=== PATIENT | female | born 1960 | race Caucasian/White ===

== ENCOUNTER 2017-12-22 10:27 | Emergency (ER) | payer OTHER ==
--- NOTE | 2017-12-22 13:30 | ED Physician Documentation ---
PD HPI BACK INJURY - Stated complaint Stated Complaint: BACK PAIN - History obtained from History obtained from: Patient - History of Present Illness Location: Left, Lower Type of injury: Twist. No: Fall, Blunt / blow, Laceration Where injury occurred: Home Timing - onset: How many days ago (3) Timing - details: Abrupt onset, Still present Quality: Pain, Sharp, Aching Improved by: No: Rest Worsened by: Moving, Palpating Associated symptoms: No: Fever, Weakness, Numbness, Incontinent of urine Contributing factors: No: Anticoagulated, Prior back surgery Similar symptoms before: Has not had sx before Recently seen: Not recently seen Review of Systems Constitutional: denies: Fever, Chills Nose: denies: Rhinorrhea / runny nose, Congestion Throat: denies: Sore throat Cardiac: denies: Chest pain / pressure, Palpitations Respiratory: denies: Dyspnea (but upper lumbar area hurts with ceep breathing and movement.), Cough GI: denies: Abdominal Pain, Nausea, Vomiting, Diarrhea : denies: Dysuria, Frequency Skin: denies: Rash, Lesions Neurologic: denies: Generalized weakness, Focal weakness, Numbness PD PAST MEDICAL HISTORY - Past Medical History Cardiovascular: Hypertension, High cholesterol Respiratory: None Endocrine/Autoimmune: Type 2 diabetes GI: GERD : None Psych: None Musculoskeletal: None Derm: None - Past Surgical History Past Surgical History: Yes - Present Medications Home Medications: Ambulatory Orders Medication Instructions Recorded Confirmed Lisinopril [Zestril] 10 mg PO DAILY 05/16/13 09/09/15 Losartan Potassium [Cozaar] 50 mg PO 05/16/13 09/09/15 Metformin HCl 1,000 mg PO BID 05/16/13 09/09/15 Amoxicillin/Potassium Clav [Amox 1 tab PO BID 09/09/15 09/09/15 Tr-K Clv 875-125 mg Tab] Benzonatate [Tessalon [place]] 1 cap PO TID 09/09/15 09/09/15 Loratadine 10 mg PO DAILY 09/09/15 09/09/15 HYDROcod/ACETAM 5/325 [[place] 5/325] 1 tab PO Q6H PRN #15 tablet 12/22/17 Methocarbamol [Robaxin] 500 mg PO Q6H PRN #25 tablet 12/22/17 Naproxen 375 mg PO BID #20 tablet 12/22/17 - Allergies Allergies/Adverse Reactions: Allergies Allergy/AdvReac Type Severity Reaction Status Date / Time tramadol AdvReac Severe Hives Verified 12/22/17 10:33 - Social History Does the pt smoke?: No Smoking Status: Never smoker Does the pt drink ETOH?: No Does the pt have substance abuse?: No - Immunizations Immunizations are current?: Yes - POLST Patient has POLST: No PD ED PE NORMAL - Vitals Vital signs reviewed: Yes - General General: Alert and oriented X 3, Well developed/nourished, Other (appears uncomfortable and has guarded ROM of the lumbar back area) - Neck Neck: Supple, no meningeal sign, No adenopathy - Cardiac Cardiac: RRR, No murmur - Respiratory Respiratory: No respiratory distress, Clear bilaterally - Abdomen Abdomen: Soft, Non tender, Non distended - Female Female : Deferred - Rectal Rectal: Deferred - Back Back: No CVA TTP, No spinal TTP, Other (tender left muscles TL area. ) - Derm Derm: Normal color, Warm and dry, No rash - Neuro Neuro: Alert and oriented X 3, No motor deficit, No sensory deficit, Normal speech Results - Vitals Vitals: Oxygen O2 Source Room air - Labs Labs: Laboratory Tests 12/22/17 12/22/17 12/22/17 14:00 14:39 14:39 WBC 6.9 RBC 4.23 Hgb 14.2 Hct 40.9 MCV 96.7 MCH 33.6 H MCHC 34.7 RDW 12.2 Plt Count 208 MPV 7.9 Neut # 4.0 Lymph # 2.4 [place] # 0.4 Eos # 0.1 Baso # 0.0 Absolute Nucleated RBC 0.00 Nucleated RBC % 0.0 Sodium 137 Potassium 4.2 Chloride 97 L Carbon Dioxide 29 Anion Gap 11.0 BUN 9 Creatinine 0.7 Estimated GFR (MDRD) 86 L Glucose 177 H Calcium 9.3 Total Bilirubin 0.6 AST 17 ALT 19 Alkaline Phosphatase 63 Total Protein 7.0 Albumin 3.9 Globulin 3.1 Albumin/Globulin Ratio 1.3 Lipase 40 Urine Color YELLOW Urine Clarity CLEAR Urine pH 6.0 Ur Specific [place] 1.010 Urine Protein NEGATIVE Urine Glucose (UA) NEGATIVE Urine Ketones NEGATIVE Urine Occult Blood NEGATIVE Urine Nitrite NEGATIVE Urine Bilirubin NEGATIVE Urine Urobilinogen 0.2 (NORMAL) Ur Leukocyte Esterase NEGATIVE Ur Microscopic Review NOT INDICATED Urine Culture Comments NOT INDICATED - Rads (name of study) abd CT Radiology: Prelim report reviewed, EMP read contemporaneously (no stones, spinous abnormal, dilated aorta nor lower lung abnormalities. ) PD MEDICAL DECISION MAKING - ED course Complexity details: considered differential (back pain positional without neuro symptoms and no red flags on history/exam. Hurts with breathing but is thoracolumbar msucles and not upper thoracic. ), d/w patient Departure - Departure Disposition: Home, Self Care Clinical Impression: Back strain Qualifiers: Encounter type: initial encounter Qualified Code(s): S39.012A - Strain of muscle, fascia and tendon of lower back, initial encounter Condition: Stable Record reviewed to determine appropriate education?: Yes Instructions: ED Sprain Strain Lumbar Follow-Up: Navjot Hess MD [Primary Care Provider] - Prescriptions: HYDROcod/ACETAM 5/325 [[place] 5/325] 1 tab PO Q6H PRN #15 tablet PRN Reason: Pain Methocarbamol [Robaxin] 500 mg PO Q6H PRN #25 tablet PRN Reason: Spasms Naproxen 375 mg PO BID #20 tablet Comments: Drink lots of fluids. Naproxen twice daily for 7-10 days. Robaxin for muscle spasms. Add Tylenol and/or Hydrocodone as needed for pains. Heat and gentle stretching. No signs of worse causes on labs/CT scan. Presume muscular strain/ spasm as cause of the pain. Discharge Date/Time: 12/22/17 15:58
[2017-12-22] MEDS ORDERED: IBUPROFEN 600 MG TABLET PO STA (14:03)
[2017-12-22] MEDS ORDERED: HYDROcod/ACETAM 5/325 MG TABLET PO STA (14:03)
[2017-12-22 14:21] LABS: BILIRUBIN,URINE NEGATIVE (NEGATIVE); GLUCOSE, URINE (UA) NEGATIVE (NEGATIVE); KETONES,URINE (UA) NEGATIVE (NEGATIVE); LEUKOCYTE ESTERASE, URINE NEGATIVE (NEGATIVE); NITRITE,URINE NEGATIVE (NEGATIVE); OCCULT BLOOD,URINE NEGATIVE (NEGATIVE); PROTEIN,URINE NEGATIVE (NEGATIVE); UROBILINOGEN,URINE 0.2 (NORMAL) E.U./dL (NORMAL)
[2017-12-22 14:22] LABS: CLARITY,URINE CLEAR (CLEAR)
--- NOTE | 2017-12-22 14:42 | CT Report ---
EXAM: CT ABDOMEN AND PELVIS (CT KUB) EXAM DATE: 12/22/2017 02:22 PM. CLINICAL HISTORY: Left flank pain for couple days. COMPARISONS: 09/09/2015. TECHNIQUE: Routine axial helical CT imaging was performed through the abdomen and pelvis without IV c ontrast. Reconstructions: Coronal and sagittal. In accordance with CT protocol optimization, one or more of the following dose reduction techniques w ere utilized for this exam: automated exposure control, adjustment of mA and/or KV based on patient s ize, or use of iterative reconstructive technique. FINDINGS: Lung Bases: Unremarkable. Right Kidney/Ureter: No stones, hydronephrosis, or hydroureter. No significant perinephric fat strand ing. Left Kidney/Ureter: No stones, hydronephrosis, or hydroureter. No significant perinephric fat strandi ng. Other Solid Organs: Noncontrast images of the solid organs are grossly unremarkable. Gallbladder/Bile Ducts: Unremarkable. Peritoneal Cavity: No dilated or thick-walled bowel is seen. There is distal colon diverticulosis wit hout evidence of diverticulitis. No enlarged mesenteric or retroperitoneal lymph nodes. No intraperit anand free air or free fluid. Pelvic Organs: No bladder stones or wall thickening. Noncontrast images of the visualized pelvic orga ns are unremarkable. Vasculature: Unremarkable. Other: None. IMPRESSION: 1. The kidneys demonstrate no evidence of stones or hydronephrosis. 2. There is colonic diverticulosis without CT evidence of diverticulitis. [facility] Referring Provider Line: [phone] SITE ID: [id number]
[2017-12-22 14:44] LABS: BASOPHILS % (AUTO) 0.5 %; EOSINOPHILS # (AUTO) 0.1 10^3/uL (0.0-0.7); EOSINOPHILS % (AUTO) 1.2 %; HGB - HEMOGLOBIN 14.2 g/dL (12.0-16.0); LYMPHOCYTES # (AUTO) 2.4 10^3/uL (1.5-3.5); LYMPHOCYTES % (AUTO) 34.5 %; MEAN CORPUSCULAR HEMOGLOBIN 33.6 pg (27.0-31.0); MEAN CORPUSCULAR HGB CONC 34.7 g/dL (32.0-36.0); MEAN CORPUSCULAR VOLUME 96.7 fL (81.0-99.0); MEAN PLATELET VOLUME 7.9 fL (7.9-10.8); MONOCYTES # (AUTO) 0.4 10^3/uL (0.0-1.0); MONOCYTES % (AUTO) 6.2 %; NEUTROPHILS % (AUTO) 57.6 %; PLT - PLATELET COUNT 208 10^3/uL (130-450); RED BLOOD COUNT 4.23 10^6/uL (4.20-5.40); RED CELL DISTRIBUTION WIDTH 12.2 % (12.0-15.0); WHITE BLOOD COUNT 6.9 x10^3/uL (4.8-10.8)
[2017-12-22 14:56] LABS: ALBUMIN 3.9 g/dL (3.2-5.5); ALBUMIN/GLOBULIN RATIO 1.3 (1.0-2.2); BILIRUBIN,TOTAL 0.6 mg/dL (0.2-1.0); CALCIUM 9.3 mg/dL (8.5-10.3); CREATININE 0.7 mg/dL (0.4-1.0)
[2017-12-22 15:56] VITALS: BP 166/85
== END 2017-12-22 15:58 | disposition home or self-care (01) ==
LOC: ED 10:27
DX: S39.012A Strain of muscle, fascia and tendon of lower back, initial encounter (principal); X50.9XXA Other and unspecified overexertion or strenuous movements or postures, initial encounter; Y92.009 Unspecified place in unspecified non-institutional (private) residence as the place of occurrence of the external cause; R94.31 Abnormal electrocardiogram [ECG] [EKG]; E11.9 Type 2 diabetes mellitus without complications; I10 Essential (primary) hypertension; E78.00 Pure hypercholesterolemia, unspecified; Z79.84 Long term (current) use of oral hypoglycemic drugs
CPT/HCPCS: 36415; 74176; 80053; 81003; 83690; 85025; 93005; 99283; A9270; 81001; 87086

== ENCOUNTER 2019-03-10 11:34 | Emergency (ER) | payer OTHER ==
[2019-03-10 11:42] VITALS: BP 160/88
[2019-03-10] MEDS ORDERED: TETANUS/DIPHTHERIA/PERTUSSIS 0.5 ML SYRINGE IM ONE (12:14)
--- NOTE | 2019-03-10 12:17 | ED Physician Documentation ---
PD HPI UPPER EXT INJURY - Stated complaint Stated Complaint: L FINGER LAC - Chief complaint Chief Complaint: Laceration - History obtained from History obtained from: Patient - History of Present Illness Location: Left, Finger Where injury occurred: Home Timing - onset: Today - Additonal information Additional information: Cut tip of L 4th finger with scissors at home [employer], tetanus unknown Review of Systems Constitutional: reports: Reviewed and negative Throat: reports: Reviewed and negative Cardiac: reports: Reviewed and negative PD PAST MEDICAL HISTORY - Past Medical History Cardiovascular: Hypertension, High cholesterol Respiratory: None Endocrine/Autoimmune: Type 2 diabetes GI: GERD : None Psych: None Musculoskeletal: None Derm: None - Past Surgical History Past Surgical History: Yes - Present Medications Home Medications: Ambulatory Orders Medication Instructions Recorded Confirmed Lisinopril [Zestril] 10 mg PO DAILY 05/16/13 09/09/15 Losartan Potassium [Cozaar] 50 mg PO 05/16/13 09/09/15 RX: Metformin HCl 1,000 mg PO BID 05/16/13 09/09/15 RX: Loratadine 10 mg PO DAILY 09/09/15 09/09/15 - Allergies Allergies/Adverse Reactions: Allergies Allergy/AdvReac Type Severity Reaction Status Date / Time tramadol AdvReac Severe Hives Verified 03/10/19 11:42 - Social History Does the pt smoke?: No Smoking Status: Never smoker Does the pt drink ETOH?: No Does the pt have substance abuse?: No - Immunizations Immunizations are current?: Yes - POLST Patient has POLST: No PD ED PE NORMAL - Vitals Vital signs reviewed: Yes - General General: Alert and oriented X 3, No acute distress - Extremities Extremities: Other (She has a shallow pulp skin amputation of less than 1sq cm of 4th L digit with active bleeding.) - Neuro Neuro: Alert and oriented X 3, Normal speech Results - Vitals Vitals: Vital Signs - 24 hr 03/10/19 11:40 Temperature 36.8 C Heart Rate 74 Respiratory 16 Rate Blood Pressure 160/88 H O2 Saturation 99 Oxygen O2 Source Room air PD MEDICAL DECISION MAKING - ED course ED course: It was dressed loosely with Xeroform and tube gauze and elevated for 15 minutes and there was no further bleeding and she was given advice on wound care. Departure - Departure Disposition: 01 Home, Self Care Clinical Impression: Traumatic amputation of fingertip Condition: Good Record reviewed to determine appropriate education?: Yes Instructions: ED Laceration Amputation Finger Tip Open Tx Comments: Leave the current dressing on until Friday, after that you can remove it and wash with soap/water and keep it covered with a bandage and keep moist with vaseline. Discharge Date/Time: 03/10/19 12:34
== END 2019-03-10 12:34 | disposition home or self-care (01) ==
LOC: ED 11:34
DX: S68.125A Partial traumatic metacarpophalangeal amputation of left ring finger, initial encounter (principal); W26.8XXA Contact with other sharp object(s), not elsewhere classified, initial encounter; Y93.89 Activity, other specified; Y92.009 Unspecified place in unspecified non-institutional (private) residence as the place of occurrence of the external cause; I10 Essential (primary) hypertension; E11.9 Type 2 diabetes mellitus without complications; Z79.84 Long term (current) use of oral hypoglycemic drugs
CPT/HCPCS: 90471; 99282; 99283

== ENCOUNTER 2019-04-16 08:12 | Outpatient (CLI) | payer OTHER ==
--- NOTE | 2019-04-16 11:58 | MRI Report ---
Reason: LOW BACK PAIN,PAIN IN UNSPECIFIED HIP Procedure Date: 04/16/2019 Accession Number: [id number] / [id number] Procedure: MRI - Lumbar Spine W/O CPT Code: FULL RESULT: EXAM: MRI LUMBAR SPINE WITHOUT CONTRAST EXAM DATE: 04/16/2019 08:36 AM. CLINICAL HISTORY: Low back pain, left hip pain, leg pain COMPARISON: None. TECHNIQUE: Multiplanar, multisequence T1-weighted and fluid-sensitive sequences of the lumbar spine from T10 to S3 without contrast. Other: None. FINDINGS: Spinal Canal: The conus terminates at T12-L1. The conus medullaris and cauda equina are unremarkable. Alignment: No scoliosis or spondylolisthesis. Bone Marrow: Five [id number] lumbar vertebral bodies are assumed. No gross fractures or bone lesions. No bone marrow replacement. Disk Levels/Facets: T12-L1: Unremarkable. L1-L2: Unremarkable. L2-L3: Unremarkable. L3-L4: There is a mild disk bulge. There is mild facet hypertrophy. There is mild left neural foraminal narrowing. No central canal narrowing. L4-L5: Disk is unremarkable. There is moderate bilateral facet hypertrophy. There is mild central canal narrowing. There is no neural foraminal narrowing. L5-S1: Disk unremarkable. Moderate bilateral facet hypertrophy. No central canal narrowing. No neural foraminal narrowing. Comment: The following findings are so common in adults without low back pain that while we report their presence, they must be interpreted with caution and in the context of the clinical situation. (Reference Jarvik et al, Spine 2001) Prevalence of findings in patients without low back pain: Disk degeneration (any evidence): 92% Disk desiccation/T2 signal loss: 83% Disk height loss: 56% Disk bulge: 64% Disk protrusion: 32% Annular tear/high intensity zone: 38% Musculature: Normal. No edema or fatty atrophy. Other: The partially visualized retroperitoneum is unremarkable. IMPRESSION: 1. L4-L5 facet hypertrophy with mild central canal narrowing. 2. L3-L4 disk bulge with mild left neural foraminal narrowing. [facility]
== END 2019-04-16 08:13 | disposition home or self-care (01) ==
LOC: DI 08:12
PROVIDERS: ATTEND Family Medicine
DX: M51.26 Other intervertebral disc displacement, lumbar region (principal); M48.061 Spinal stenosis, lumbar region without neurogenic claudication; M25.559 Pain in unspecified hip
CPT/HCPCS: 72148

== ENCOUNTER 2019-12-06 09:50 | Outpatient (CLI) | payer OTHER ==
[2019-12-06 19:35] VITALS: BP 107/64
--- NOTE | 2019-12-06 19:35 | SLEEP CARE CONSULTATION ---
Information from patient questionnaire entered by Edilma Smith. I have reviewed and concur with the information entered by Edilma Smith. This document represents the service I personally performed and the decisions made by me, Tyree Goode MD, [facility]. History of Present Illness Reason for Visit: New patient, Previously diagnosed sleep apnea, sleep apnea on CPAP therapy Accompanied by: Spouse Chief Complaint: reports: Other (follow up) Duration of Symptoms: years Usual bedtime: 10-11 pm Time it takes to fall asleep: 30 mins or more Snores at night: Yes (sometimes) Observed to quit breathing while asleep: No Sleeps alone due to snoring: No Number of times waking at night: 4-5 Reasons for waking at night: reports: Pain (hip/joint), Bathroom Toss, Turn, or Twitch while sleeping: Yes Recalls having dreams: Yes Usually gets out of bed at: 8-9 am Feels refreshed in the morning: Yes Morning headache: Yes (sometimes) Sleepy or fatigued during the day: No (sometimes) Ever fallen asleep while driving: No Takes day naps: Yes (sometimes) Dreams during day naps: No Prior sleep studies: Yes Year and Where: [facility] Additional HPI information: I have the pleasure of seeing Ms. Haile today regarding obstructive sleep apnea. As you know, she is a 45 year old lady who complains of insomnia, observed pauses in breathing, unrefreshed sleep, excessive daytime sleepiness, and fatigue. She had a sleep study in 2010 in [place] that showed moderate obstructive sleep apnea. The record is not available. She has been using the CPAP regularly since. She wears a nasal mask and was able to get a new one from [facility] recently. She sleeps and feels better on the treatment. The compliance data show usage in 179 out of the past 180 nights, averaging 7.2 hours a night. The residual AHI is 0.7 and average air leak is 0.1 L/minute. The patient was last seen here in August 2016. His autoCPAP is set at 10 15 cmH2O. She has not gotten any supplies from [facility] for a while. - Parasomnia Symptoms Ever been unable to move upon waking from sleep: No Ever felt weak in the knees when startled or emotional: No Bothered by creepy, crawly, restless sensations in legs: No Problems with memory or concentration: Yes (sometimes) CPAP Compliance Data - Data Reviewed with Patient Average duration of nightly device use: 8.1 Compliance rate %: 97 (180 days) Current pressure setting (cmH2O): 7-16 Humidity settin Average residual AHI: 1.0 Subjective Initial [place] Sleepiness Scale score: 2 Past Medical History Past Medical History: reports: Diabetes, Arthritis, Anxiety, Depression Social History The patient's occupation is not employed. Patient is and lives in [place]. Have you smoked in the past 12 months: No Alcohol use: Yes Alcohol amount and frequency: 2 drinks nightly Caffeine use: No Family History Family history of sleep disordered breathing: Yes Allergies and Home Medications Drug allergies reviewed: Yes Home medication list reviewed: Yes Review of Systems Weight gain over past 5 years: 10 Cardiovascular: reports: high blood pressure, irregular heart rate or pulse Respiratory: denies: shortness of breath, wheeze, sputum production, chronic cough, other Gastrointestinal: denies: heartburn, difficulty swallowing, nausea, vomitting, diarrhea, abdominal pain, other Urinary: denies: incontinence, frequency, urgency, impotence, other Neurological: reports: headaches (sometimes) Psychiatric: reports: anxiety Ear/Nose/Throat: reports: sinus problems (some), dry mouth/throat (sometimes) Endocrine: reports: increased urination Musculoskeletal: reports: joint pain, muscle pain or cramping Immunologic: denies: sneezing, rash, itching, allergies to food or environment, other Physical Exam Vital signs obtained and entered by: Dr. Goode Blood Pressure: 107/64 Cuff size: regular Heart Rate: 68 O2 Saturation: 97 Height: 5 ft 7 in Weight: 255 lb Body Mass Index: 39.9 BMI Classification: Obesity Class 2 Neck circumference: 16.5 Mood/affect: Normal HEENT: No craniofacial malformation Nostrils: patent to airflow Turbinates: normal Septum: midline Mouth and throat: narrow oropharynx Soft palate: long Hard palate: normal Uvula: normal Uvula visualization: 25% Mallampati Class III Tongue: normal in size Tonsils: small Chin and jaw: normal size and position Neck: normal w/o lymphadenopathy or thyromegaly Heart: regular rate and rhythm Lungs: clear bilaterally Abdomen: soft, non-tender Extremities: no edema or clubbing Neurologic: intact, no focal deficits Impression and Plan IMPRESSION: 1. Obstructive Sleep Apnea-Hypopnea Syndrome, moderate, as previously diagnosed. The sleep-disordered breathing most likely have improved with her recent 50-lb weight loss. The patient continues to have had good treatment compliance. The current pressure setting appears effective and comfortable. The patient experiences improvement on the treatment. She is in need of new supplies. I will switch her to a different durable medical supplier. Plan: 1. Prescription made for CPAP supplies, so that she may switch durable medical supplier. 2. Try to lose more weight. 3. Return for follow up in a year or earlier if there is any problem. 4. Repeat in-laboratory polysomnography when she loses more weight. I spent 100% of this visit face to face with the patient with greater than 50% of this was spent time counseling the patient and coordination of care.
== END 2019-12-06 09:51 | disposition home or self-care (01) ==
LOC: SC 09:50
PROVIDERS: ATTEND Internal Medicine Pulmonary Disease
DX: G47.33 Obstructive sleep apnea (adult) (pediatric) (principal); E66.9 Obesity, unspecified; Z68.39 Body mass index [BMI] 39.0-39.9, adult
CPT/HCPCS: 99203; 99212